=== PATIENT | female | born 1990 | race Caucasian/White ===

== ENCOUNTER → 2017-08-12 16:11 | Outpatient (CLI) | payer MEDICAID, SELFPAY ==
[2017-08-12 17:56] LABS: Hematocrit 40.3 % (37-47); Hemoglobin 13.5 g/dl (12.0-15.0)
[2017-08-12 18:19] LABS: Cholesterol 193 mg/dL (200); Ferritin 3 ng/mL (8-252); High Density Lipoprotein 70 mg/dL; Thyroid Stim Hormone (TSH) 0.82 uIU/mL (0.358-3.74)
== END ==
PROVIDERS: Visit Provider Family Medicine
DX: Z01.419 Encounter for gynecological examination (general) (routine) without abnormal findings (principal)
CPT/HCPCS: 36415; 82465; 82728; 83718; 84443; 85014; 85018

== ENCOUNTER → 2018-03-26 14:25 | Outpatient (CLI) | payer BC, MEDICAID, SELFPAY ==
[2018-03-26 15:59] LABS: Ferritin 30 ng/mL (8-252)
== END ==
PROVIDERS: Family Provider Family Medicine; PCP Family Medicine; Visit Provider Family Medicine
DX: E61.1 Iron deficiency (principal)
CPT/HCPCS: 36415; 82728

== ENCOUNTER → 2018-09-11 15:38 | Outpatient (CLI) | payer BC, MEDICAID, SELFPAY | PROVIDERS: Family Provider Family Medicine; PCP Family Medicine; Referring Provider Family Medicine; Visit Provider Family Medicine | DX: Z01.419 Encounter for gynecological examination (general) (routine) without abnormal findings (principal) | CPT/HCPCS: 88175; G0145 ==